=== PATIENT | male | born 1945 | race Caucasian/White ===

== ENCOUNTER 2022-02-13 22:34 | Inpatient (IN) | payer OTHER ==
[~2022-02-13] VITALS: Ht 165.1 cm; Wt 86.2 kg
[2022-02-13 23:23] VITALS: BP_SYST 167
[2022-02-13] MEDS ORDERED: DEXTROSE 50% JECT 50 ML DISP.SYRIN IVP ONE (23:45)
[2022-02-13] MEDS ORDERED: NS 500 ML IV ONE (23:45)
[2022-02-14] VITALS (16 sets, daily range): BP systolic 121–166
[2022-02-14 00:25] LABS: BASOPHILS # (AUTO) 0.1 K/uL (0.0-0.2); BASOPHILS % (AUTO) 0.9 % (0.0-2.0); HEMATOCRIT 28.9 % (36-54); LYMPHOCYTES % (AUTO) 10.9 % (20.5-51.5); MEAN CORPUSCULAR HEMOGLOBIN 31 pg (27-31); MEAN CORPUSCULAR HGB CONC 34 % (32-36); MEAN CORPUSCULAR VOLUME 89 fL (79.0-98.0); MONOCYTES # (AUTO) 0.5 K/uL (0.0-1.0); MONOCYTES % (AUTO) 5.2 % (1.7-9.3); NEUTROPHILS # (AUTO) 7.5 K/uL (1.8-7.7); PLATELET COUNT (AUTO) 196 K/uL (130-430); RED BLOOD CELL COUNT(AUTO) 3.24 MIL/uL (4.2-6.2); RED CELL DISTRIBUTION WIDTH 13.9 % (9.0-15.0)
[2022-02-14 01:23] LABS: BILIRUBIN,URINE NEGATIVE (NEGATIVE); BLOOD, URINE 1+ (NEGATIVE); CLARITY/URINE CLEAR (CLEAR); COLOR,URINE YELLOW (YELLOW); GLUCOSE,URINE TRACE (NEGATIVE); KETONES,URINE NEGATIVE (NEGATIVE); LEUKOCYTE ESTERASE ,URINE NEGATIVE (NEGATIVE); NITRITE, URINE NEGATIVE (NEGATIVE); PH,URINE 5.5 (5.0-8.0); PROTEIN URINE 3+ (NEGATIVE); UROBILINOGEN,URINE 0.2 (0.2-1.0)
[2022-02-14 01:37] LABS: ALANINE AMINOTRANSFERASE 15 U/L (12-78); ANION GAP 9 (5-15); ASPARTATE AMINOTRANSFERASE 18 U/L (10-37); CALCIUM 8.3 mg/dL (8.4-11.0); CHLORIDE 108 mmol/L (98-107); CREATININE 4.49 mg/dL (0.55-1.30); GLUCOSE 222 mg/dL (70-99); POTASSIUM 4.9 mmol/L (3.5-5.1); SODIUM SERUM 134 mmol/L (136-145); TOTAL BILIRUBIN 0.2 mg/dL (0.0-1.0); UREA NITROGEN, BLOOD 46 mg/dL (8-21)
[2022-02-14] MEDS ORDERED: DEXTROSE 50% JECT 50 ML DISP.SYRIN ONE (01:38)
[2022-02-14] MEDS ORDERED: DEXTROSE 10%-WATER 500 ML IV SCH (01:45)
[2022-02-14] MEDS ORDERED: DEXTROSE 50% JECT 50 ML DISP.SYRIN IVP ONE ×2 (01:45→03:15)
[2022-02-14] MEDS ORDERED: D5NS 1,000 ML IV ONE (01:45)
[2022-02-14] MEDS ORDERED: CLOP75TA32 PO (02:13)
[2022-02-14] MEDS ORDERED: GLIM1TAB PO (02:13)
[2022-02-14] MEDS ORDERED: METO-542 (02:13)
[2022-02-14] MEDS ORDERED: ASA81 PO (02:13)
[2022-02-14] MEDS ORDERED: MECL-261 (02:13)
[2022-02-14] MEDS ORDERED: LISI40TA13 PO (02:13)
[2022-02-14] MEDS ORDERED: AMLO10TA88 PO (02:13)
[2022-02-14] MEDS ORDERED: FOLI-43 PO (02:13)
[2022-02-14] MEDS ORDERED: PRAV40TA63 PO (02:13)
[2022-02-14] MEDS ORDERED: INSULIN REGULAR, HUMAN 100 UNITS/ML, 10 ML VIAL (humuLIN R) SUBCUT PRN (02:45)
[2022-02-14] MEDS: D5/0.45 NS 1,000 ML IV SCH ×2 (03:44→14:07)
[2022-02-14] MEDS ORDERED: DOCUSATE SODIUM 100 MG CAPSULE PO PRN (08:00)
[2022-02-14] MEDS ORDERED: ACETAMINOPHEN 325 MG TABLET PO PRN ×2 (08:00)
[2022-02-14] MEDS ORDERED: ONDANSETRON HCL 4 MG/2 ML VIAL IVP PRN (08:00)
[2022-02-14] MEDS ORDERED: NALOXONE HCL 0.4 MG/ML AMP (NARCAN) IVP PRN ×2 (08:00)
[2022-02-14] MEDS ORDERED: ZOLPIDEM TARTRATE 5 MG TABLET PO PRN (08:00)
[2022-02-14] MEDS ORDERED: MAGNESIUM SULFATE 50 ML IV PRN (08:00)
[2022-02-14] MEDS ORDERED: POTASSIUM CHLORIDE 20 MEQ TAB.PRT.SR PO PRN (08:00)
[2022-02-14] MEDS ORDERED: MORPHINE 2 MG/ML INJ. SYRINGE IVP PRN ×2 (08:00)
[2022-02-14] MEDS ORDERED: MUPIROCIN 2% TOPICAL OINTMENT 22 GM NS PRN (08:00)
[2022-02-14] MEDS ORDERED: LORazepam 2 MG/ML VIAL IVP PRN (08:00)
[2022-02-14 08:28] LABS: ANION GAP 13 (5-15); CALCIUM 8.1 mg/dL (8.4-11.0); CHLORIDE 112 mmol/L (98-107); CREATININE 4.13 mg/dL (0.55-1.30); GLUCOSE 86 mg/dL (70-99); POTASSIUM 4.9 mmol/L (3.5-5.1); SODIUM SERUM 141 mmol/L (136-145); UREA NITROGEN, BLOOD 45 mg/dL (8-21)
[2022-02-14] MEDS: ASPIRIN 81 MG TAB.CHEW PO SCH (09:08)
[2022-02-14] MEDS: CLOPIDOGREL BISULFATE 75 MG TABLET PO SCH (09:09)
[2022-02-14] MEDS: amLODIPine BESYLATE 10 MG TABLET PO SCH (09:09)
[2022-02-14] MEDS: FOLIC ACID 1 MG TABLET PO SCH (09:09)
[2022-02-14] MEDS: METOPROLOL SUCCINATE 50 MG TAB.SR.24H (TOPROL XL) PO SCH (09:09)
[2022-02-15] MEDS: D5/0.45 NS 1,000 ML IV SCH ×3 (00:30→19:41)
[2022-02-15 00:31] VITALS: BP_SYST 156
[2022-02-15 06:52] LABS: BASOPHILS # (AUTO) 0.1 K/uL (0.0-0.2); BASOPHILS % (AUTO) 0.9 % (0.0-2.0); EOSINOPHILS # (AUTO) 0.1 K/uL (0.0-0.4); EOSINOPHILS % (AUTO) 2.3 % (0.0-4.0); HEMATOCRIT 27.4 % (36-54); HEMOGLOBIN 9.4 g/dL (14.0-18.0); LYMPHOCYTES # (AUTO) 1.6 K/uL (1.0-5.5); LYMPHOCYTES % (AUTO) 25.1 % (20.5-51.5); MEAN CORPUSCULAR HEMOGLOBIN 30 pg (27-31); MEAN CORPUSCULAR HGB CONC 34 % (32-36); MEAN CORPUSCULAR VOLUME 89 fL (79.0-98.0); MONOCYTES # (AUTO) 0.7 K/uL (0.0-1.0); MONOCYTES % (AUTO) 10.8 % (1.7-9.3); NEUTROPHILS % (AUTO) 60.9 % (40.0-70.0); PLATELET COUNT (AUTO) 168 K/uL (130-430); RED BLOOD CELL COUNT(AUTO) 3.09 MIL/uL (4.2-6.2); RED CELL DISTRIBUTION WIDTH 13.8 % (9.0-15.0); WHITE BLOOD COUNT (AUTO) 6.5 K/uL (4.8-10.8)
[2022-02-15 08:15] VITALS: BP_SYST 164
[2022-02-15 08:48] LABS: ANION GAP 11 (5-15); CALCIUM 7.9 mg/dL (8.4-11.0); CHLORIDE 113 mmol/L (98-107); CREATININE 3.68 mg/dL (0.55-1.30); GLUCOSE 105 mg/dL (70-99); POTASSIUM 5.2 mmol/L (3.5-5.1); SODIUM SERUM 141 mmol/L (136-145); UREA NITROGEN, BLOOD 40 mg/dL (8-21)
[2022-02-15] MEDS ORDERED: SODIUM POLYSTYRENE SULFONATE 15 GM/60 ML UDBTL PO ONE (09:45)
[2022-02-15] MEDS ORDERED: FOLIC ACID 1 MG TABLET ONE (10:00)
[2022-02-15] MEDS ORDERED: CLOPIDOGREL BISULFATE 75 MG TABLET ONE (10:01)
[2022-02-15] MEDS ORDERED: METOPROLOL SUCCINATE 25 MG TAB.SR.24H (TOPROL XL) PO ONE (10:01)
[2022-02-15] MEDS: ASPIRIN 81 MG TAB.CHEW PO SCH (10:02)
[2022-02-15] MEDS: CLOPIDOGREL BISULFATE 75 MG TABLET PO SCH (10:03)
[2022-02-15] MEDS: FOLIC ACID 1 MG TABLET PO SCH (10:03)
[2022-02-15] MEDS: amLODIPine BESYLATE 10 MG TABLET PO SCH (10:03)
[2022-02-15] MEDS: METOPROLOL SUCCINATE 50 MG TAB.SR.24H (TOPROL XL) PO SCH (10:04)
[2022-02-15 11:42] VITALS: BP_SYST 150
[2022-02-15] MEDS ORDERED: SODIUM ZIRCONIUM CYCLOSILICATE 10 GM POWD.PACK PO ONE (14:30)
[2022-02-15] MEDS ORDERED: CITRIC ACID/SODIUM CITRATE 30 ML UDC PO ONE (14:30)
[2022-02-15 16:25] VITALS: BP_SYST 143
[2022-02-15 21:07] VITALS: BP_SYST 172
[2022-02-16 00:30] VITALS: BP_SYST 161
[2022-02-16] MEDS: D5/0.45 NS 1,000 ML IV SCH (05:41)
[2022-02-16 07:05] LABS: BASOPHILS # (AUTO) 0.1 K/uL (0.0-0.2); BASOPHILS % (AUTO) 0.9 % (0.0-2.0); EOSINOPHILS # (AUTO) 0.2 K/uL (0.0-0.4); EOSINOPHILS % (AUTO) 2.7 % (0.0-4.0); HEMATOCRIT 27.6 % (36-54); HEMOGLOBIN 9.7 g/dL (14.0-18.0); LYMPHOCYTES # (AUTO) 1.3 K/uL (1.0-5.5); LYMPHOCYTES % (AUTO) 17.9 % (20.5-51.5); MEAN CORPUSCULAR HEMOGLOBIN 31 pg (27-31); MEAN CORPUSCULAR HGB CONC 35 % (32-36); MEAN CORPUSCULAR VOLUME 88 fL (79.0-98.0); MONOCYTES # (AUTO) 0.8 K/uL (0.0-1.0); MONOCYTES % (AUTO) 11.2 % (1.7-9.3); NEUTROPHILS % (AUTO) 67.3 % (40.0-70.0); PLATELET COUNT (AUTO) 175 K/uL (130-430); RED BLOOD CELL COUNT(AUTO) 3.15 MIL/uL (4.2-6.2); RED CELL DISTRIBUTION WIDTH 13.9 % (9.0-15.0); WHITE BLOOD COUNT (AUTO) 7.4 K/uL (4.8-10.8)
[2022-02-16 07:12] LABS: ANION GAP 10 (5-15); CALCIUM 8.1 mg/dL (8.4-11.0); CHLORIDE 112 mmol/L (98-107); CREATININE 3.41 mg/dL (0.55-1.30); GLUCOSE 99 mg/dL (70-99); POTASSIUM 5.3 mmol/L (3.5-5.1); SODIUM SERUM 140 mmol/L (136-145); UREA NITROGEN, BLOOD 43 mg/dL (8-21)
[2022-02-16 07:47] VITALS: BP_SYST 177
[2022-02-16 08:00] VITALS: BP_SYST 177
[2022-02-16] MEDS ORDERED: SODIUM POLYSTYRENE SULFONATE 15 GM/60 ML UDBTL PO ONE (09:00)
[2022-02-16] MEDS: FOLIC ACID 1 MG TABLET PO SCH (09:21)
[2022-02-16] MEDS: CLOPIDOGREL BISULFATE 75 MG TABLET PO SCH (09:21)
[2022-02-16] MEDS: ASPIRIN 81 MG TAB.CHEW PO SCH (09:21)
[2022-02-16] MEDS: amLODIPine BESYLATE 10 MG TABLET PO SCH (09:22)
[2022-02-16] MEDS: METOPROLOL SUCCINATE 50 MG TAB.SR.24H (TOPROL XL) PO SCH (09:23)
[2022-02-16 12:00] VITALS: BP_SYST 136
[2022-02-16 13:22] VITALS: BP_SYST 132
== END 2022-02-16 13:55 | disposition home or self-care (01) | DRG 638 ==
LOC: EDBD 22:34 → SED 22:34 → SIC 02-14 02:37 → STU 02-14 16:40
PROVIDERS: ADMIT General Practice; ATTEND General Practice
DX: E11.649 Type 2 diabetes mellitus with hypoglycemia without coma (principal); E44.1 Mild protein-calorie malnutrition; J98.11 Atelectasis; E87.5 Hyperkalemia; N17.0 Acute kidney failure with tubular necrosis; D63.8 Anemia in other chronic diseases classified elsewhere; E78.5 Hyperlipidemia, unspecified; N18.9 Chronic kidney disease, unspecified; E11.22 Type 2 diabetes mellitus with diabetic chronic kidney disease; I12.9 Hypertensive chronic kidney disease with stage 1 through stage 4 chronic kidney disease, or unspecified chronic kidney disease; Z20.822 Contact with and (suspected) exposure to COVID-19; Z79.84 Long term (current) use of oral hypoglycemic drugs; Z87.891 Personal history of nicotine dependence; Z79.82 Long term (current) use of aspirin; Z79.899 Other long term (current) drug therapy; Z68.31 Body mass index [BMI] 31.0-31.9, adult
CPT/HCPCS: 36415; 71045; 76376; 76770; 80048; 80053; 81003; 82962; 83036; 83735; 84484; 85025; 87081; 93005; 96374; 99285; G0378; J1815; J3475

== ENCOUNTER 2022-11-14 09:10 | Inpatient (IN) | payer OTHER ==
[~2022-11-14] VITALS: Ht 165.1 cm; Wt 84.8 kg
[~2022-11-14 09:10] MED LIST: AMLO10TA88 PO; ASA81 PO; CLOP75TA32 PO; FOLI-43 PO; MECL-261; METO-542; PRAV40TA63 PO
[2022-11-14 09:12] VITALS: BP_SYST 176
[2022-11-14 09:13] VITALS: BP_SYST 167
[2022-11-14 09:46] LABS: BASOPHILS % (AUTO) 0.1 % (0.0-2.0); EOSINOPHILS # (AUTO) 0.1 K/uL (0.0-0.4); HEMATOCRIT 27.8 % (36-54); HEMOGLOBIN 9.3 g/dL (14.0-18.0); LYMPHOCYTES % (AUTO) 12.8 % (20.5-51.5); MEAN CORPUSCULAR HEMOGLOBIN 30 pg (27-31); MEAN CORPUSCULAR HGB CONC 33 % (32-36); MEAN CORPUSCULAR VOLUME 90 fL (79.0-98.0); MONOCYTES # (AUTO) 0.7 K/uL (0.0-1.0); MONOCYTES % (AUTO) 8.9 % (1.7-9.3); NEUTROPHILS # (AUTO) 6.3 K/uL (1.8-7.7); NEUTROPHILS % (AUTO) 77.2 % (40.0-70.0); PLATELET COUNT (AUTO) 248 K/uL (130-430); RED BLOOD CELL COUNT(AUTO) 3.09 MIL/uL (4.2-6.2); RED CELL DISTRIBUTION WIDTH 14.5 % (9.0-15.0); WHITE BLOOD COUNT (AUTO) 8.2 K/uL (4.8-10.8)
[2022-11-14 09:58] LABS: ANION GAP 16 (5-15); CALCIUM 8.3 mg/dL (8.4-11.0); CHLORIDE 108 mmol/L (98-107); CREATININE 5.43 mg/dL (0.55-1.30); GLUCOSE 91 mg/dL (70-99); UREA NITROGEN, BLOOD 59 mg/dL (8-21)
[2022-11-14 10:05] LABS: ALANINE AMINOTRANSFERASE 15 U/L (12-78); ALBUMIN 2.9 g/dL (3.4-4.8); ASPARTATE AMINOTRANSFERASE 16 U/L (10-37); TOTAL BILIRUBIN 0.3 mg/dL (0.0-1.0)
[2022-11-14] MEDS ORDERED: FUROSEMIDE 40 MG/4 ML VIAL IVP ONE (10:30)
[2022-11-14] MEDS ORDERED: NITROGLYCERIN 1 INCH (GM) OINT. TP ONE (10:30)
[2022-11-14] MEDS ORDERED: LEVO-62 PO (10:45)
[2022-11-14] MEDS ORDERED: ALBU2.5V7 INH (10:45)
[2022-11-14] MEDS ORDERED: LORazepam 2 MG/ML VIAL IVP PRN (12:00)
[2022-11-14] MEDS ORDERED: MORPHINE 4 MG INJ. 4 MG/ML VIAL IVP PRN (12:00)
[2022-11-14] MEDS ORDERED: MORPHINE 2 MG/ML INJ. SYRINGE IVP PRN (12:00)
[2022-11-14] MEDS ORDERED: ALBUTEROL SULFATE 0.083% 2.5 MG/3 ML VIAL.NEB INH PRN (12:00)
[2022-11-14] MEDS ORDERED: POTASSIUM CHLORIDE 40 MEQ, LIDOCAINE JECT 2% PF 100 MG 50 MG in NS 250 ML IV PRN (12:00)
[2022-11-14] MEDS ORDERED: MAGNESIUM SULFATE 50 ML IV PRN (12:00)
[2022-11-14] MEDS ORDERED: NACL 0.9% 1,000 ML IV SCH (12:00)
[2022-11-14] MEDS ORDERED: ONDANSETRON HCL 4 MG/2 ML VIAL IVP PRN (12:00)
[2022-11-14 12:21] LABS: THYROID STIMULATING HORMONE 2.27 uIu/mL (0.34-4.82)
[2022-11-14] MEDS ORDERED: amLODIPine BESYLATE 10 MG TABLET PO ONE (12:30)
[2022-11-14 12:42] LABS: BILIRUBIN,URINE NEGATIVE (NEGATIVE); BLOOD, URINE 1+ (NEGATIVE); CLARITY/URINE CLEAR (CLEAR); COLOR,URINE YELLOW (YELLOW); GLUCOSE,URINE TRACE (NEGATIVE); KETONES,URINE TRACE (NEGATIVE); LEUKOCYTE ESTERASE ,URINE NEGATIVE (NEGATIVE); NITRITE, URINE NEGATIVE (NEGATIVE); PROTEIN URINE 3+ (NEGATIVE); UROBILINOGEN,URINE 0.2 (0.2-1.0)
[2022-11-14 13:31] LABS: BACTERIA,URINE None Seen /HPF (None Seen); WBC,URINE NONE SEEN /HPF (0-3)
[2022-11-14 13:53] VITALS: BP_SYST 164
[2022-11-14 14:27] VITALS: BP_SYST 169
[2022-11-14 16:00] VITALS: BP_SYST 165
[2022-11-14 20:05] VITALS: BP_SYST 182
[2022-11-14 20:21] LABS: THYROID STIMULATING HORMONE 1.52 uIu/mL (0.34-4.82)
[2022-11-14] MEDS ORDERED: hydrALAZINE HCL 25 MG TABLET PO ONE (21:30)
[2022-11-14] MEDS ORDERED: DEXTROSE 50% JECT 50 ML DISP.SYRIN IVP PRN (23:00)
[2022-11-14] MEDS ORDERED: INSULIN REGULAR, HUMAN 100 UNITS/ML, 3 ML VIAL (humuLIN R) SUBCUT PRN (23:00)
[2022-11-14] MEDS ORDERED: GLUCOSE (DEXTROSE) ORAL GEL -Adults PO PRN (23:00)
[2022-11-14] MEDS ORDERED: D5W 1,000 ML IV PRN (23:00)
[2022-11-15] VITALS (7 sets, daily range): BP systolic 141–183
[2022-11-15 05:52] LABS: BASOPHILS # (AUTO) 0.1 K/uL (0.0-0.2); BASOPHILS % (AUTO) 1.1 % (0.0-2.0); EOSINOPHILS # (AUTO) 0.1 K/uL (0.0-0.4); EOSINOPHILS % (AUTO) 0.8 % (0.0-4.0); HEMATOCRIT 25.3 % (36-54); HEMOGLOBIN 8.5 g/dL (14.0-18.0); LYMPHOCYTES % (AUTO) 14.2 % (20.5-51.5); MEAN CORPUSCULAR HEMOGLOBIN 30 pg (27-31); MEAN CORPUSCULAR HGB CONC 33 % (32-36); MEAN CORPUSCULAR VOLUME 91 fL (79.0-98.0); MONOCYTES # (AUTO) 0.6 K/uL (0.0-1.0); MONOCYTES % (AUTO) 8.7 % (1.7-9.3); NEUTROPHILS # (AUTO) 5.1 K/uL (1.8-7.7); NEUTROPHILS % (AUTO) 75.2 % (40.0-70.0); PLATELET COUNT (AUTO) 219 K/uL (130-430); RED BLOOD CELL COUNT(AUTO) 2.79 MIL/uL (4.2-6.2); RED CELL DISTRIBUTION WIDTH 14.7 % (9.0-15.0); WHITE BLOOD COUNT (AUTO) 6.8 K/uL (4.8-10.8)
[2022-11-15 06:16] LABS: INR 1.1 (0.80-1.20); PROTHROMBIN TIME 11.1 SECS (9.5-12.5)
[2022-11-15] MEDS ORDERED: SPIRONOLACTONE 50 MG TABLET (ALDACTONE) PO SCH (09:00)
[2022-11-15] MEDS ORDERED: CLOPIDOGREL BISULFATE 75 MG TABLET PO SCH (09:00)
[2022-11-15] MEDS ORDERED: ASPIRIN 81 MG TAB.CHEW PO SCH (09:00)
[2022-11-15] MEDS ORDERED: ENOXAPARIN SODIUM 30 MG/0.3 ML SYRINGE SUBCUT SCH (09:00)
[2022-11-15] MEDS ORDERED: lisinopriL 5 MG TABLET PO SCH (09:00)
[2022-11-15] MEDS: FUROSEMIDE 40 MG/4 ML VIAL IVP SCH (09:33)
[2022-11-15] MEDS: ATORVASTATIN 20 MG TABLET PO SCH (09:33)
[2022-11-15] MEDS: METOPROLOL SUCCINATE 50 MG TAB.SR.24H (TOPROL XL) PO SCH (09:33)
[2022-11-15] MEDS: hydrALAZINE HCL 25 MG TABLET PO SCH ×2 (09:34→21:26)
[2022-11-15] MEDS: FOLIC ACID 1 MG TABLET PO SCH (09:34)
[2022-11-15] MEDS: amLODIPine BESYLATE 10 MG TABLET PO SCH (09:35)
[2022-11-15 11:02] LABS: TOTAL IRON BIND. CAPACITY 307 ug/dL (250-450)
[2022-11-15 11:04] LABS: ANION GAP 14 (5-15); CALCIUM 8.3 mg/dL (8.4-11.0); CHLORIDE 112 mmol/L (98-107); CREATININE 5.65 mg/dL (0.55-1.30); GLUCOSE 92 mg/dL (70-99); UREA NITROGEN, BLOOD 62 mg/dL (8-21)
[2022-11-15 11:11] LABS: ALANINE AMINOTRANSFERASE 11 U/L (12-78); ALBUMIN 2.5 g/dL (3.4-4.8); ASPARTATE AMINOTRANSFERASE 13 U/L (10-37); PHOSPHORUS 6.7 mg/dL (2.7-4.5); TOTAL BILIRUBIN 0.3 mg/dL (0.0-1.0)
[2022-11-15] MEDS ORDERED: SODIUM POLYSTYRENE SULFONATE 15 GM/60 ML UDBTL PO ONE (11:30)
[2022-11-15 12:53] LABS: BF APPEARANCE UNSPUN SLIGHTLY CLOUDY (CLEAR); BODY FLUID SOURCE/ TYPE THORACENTESIS; SOURCE/TYPE ,BODY FLUID THORACENTESIS
[2022-11-15 12:54] LABS: BODY FLUID COLOR YELLOW (LT YELLOW); BODY FLUID TOTAL VOLUME 2000 mL
[2022-11-15 13:00] LABS: EOSINOPHIL, BODY FLUID 0 %; LYMPHOCYTES, BODY FLUID 84 %; MONOCYTES,BODY FLUID 2 %; NEUTROPHIL, BODY FLUID 14 %; RBC, BODY FLUID 24 /uL; WBC, BODY FLUID 475 /uL
[2022-11-15 21:52] LABS: BODY FLUID GLUCOSE 87 mg/dL; BODY FLUID TOTAL PROTEIN 2.6 g/dL
[2022-11-16] VITALS: BP_SYST 157
[2022-11-16 05:44] LABS: BASOPHILS # (AUTO) 0.1 K/uL (0.0-0.2); BASOPHILS % (AUTO) 1.4 % (0.0-2.0); EOSINOPHILS # (AUTO) 0.1 K/uL (0.0-0.4); HEMATOCRIT 25.3 % (36-54); HEMOGLOBIN 8.4 g/dL (14.0-18.0); LYMPHOCYTES % (AUTO) 14.2 % (20.5-51.5); MEAN CORPUSCULAR HEMOGLOBIN 30 pg (27-31); MEAN CORPUSCULAR HGB CONC 33 % (32-36); MEAN CORPUSCULAR VOLUME 91 fL (79.0-98.0); MONOCYTES # (AUTO) 0.7 K/uL (0.0-1.0); MONOCYTES % (AUTO) 9.1 % (1.7-9.3); NEUTROPHILS # (AUTO) 5.3 K/uL (1.8-7.7); NEUTROPHILS % (AUTO) 74.3 % (40.0-70.0); PLATELET COUNT (AUTO) 222 K/uL (130-430); RED CELL DISTRIBUTION WIDTH 14.6 % (9.0-15.0); WHITE BLOOD COUNT (AUTO) 7.1 K/uL (4.8-10.8)
[2022-11-16 06:35] LABS: ALANINE AMINOTRANSFERASE 10 U/L (12-78); ALBUMIN 2.2 g/dL (3.4-4.8); ANION GAP 13 (5-15); ASPARTATE AMINOTRANSFERASE 14 U/L (10-37); CALCIUM 7.9 mg/dL (8.4-11.0); CHLORIDE 112 mmol/L (98-107); CREATININE 5.53 mg/dL (0.55-1.30); GLUCOSE 84 mg/dL (70-99); TOTAL BILIRUBIN 0.3 mg/dL (0.0-1.0); UREA NITROGEN, BLOOD 54 mg/dL (8-21)
[2022-11-16 07:35] VITALS: BP_SYST 167
[2022-11-16] MEDS: ATORVASTATIN 20 MG TABLET PO SCH (09:00)
[2022-11-16] MEDS: FOLIC ACID 1 MG TABLET PO SCH (09:00)
[2022-11-16] MEDS: FUROSEMIDE 40 MG/4 ML VIAL IVP SCH (09:00)
[2022-11-16] MEDS: hydrALAZINE HCL 25 MG TABLET PO SCH ×2 (09:00→22:24)
[2022-11-16] MEDS: amLODIPine BESYLATE 10 MG TABLET PO SCH (10:46)
[2022-11-16] MEDS: METOPROLOL SUCCINATE 50 MG TAB.SR.24H (TOPROL XL) PO SCH (10:48)
[2022-11-16 12:00] VITALS: BP_SYST 166
[2022-11-16] MEDS ORDERED: ceFAZolin SODIUM 1 GM VIAL ONE (13:55)
[2022-11-16] MEDS ORDERED: NS IRRIG SOLN 1000 ML IR ONE (13:55)
[2022-11-16] MEDS ORDERED: HEPARIN SODIUM,PORCINE 10,000 UNIT/ML VIAL ONE (13:55)
[2022-11-16] MEDS ORDERED: D5W IV ONE (13:55)
[2022-11-16] MEDS ORDERED: BUPIVACAINE /EPINEPHRINE/PF 0.5% 30 ML VIAL INJ ONE (13:55)
[2022-11-16 16:30] VITALS: BP_SYST 169
[2022-11-16 19:19] LABS: TOTAL VOLUME 24HRS,URINE 1100 mL; TPROTEIN U,24HR 5756.3 mg/24HR (0-130)
[2022-11-16 19:23] LABS: CREATININE CLEARANCE,URINE 6.8 ml/min (80-120); PATIENT WEIGHT 187 LBS
[2022-11-16 20:00] VITALS: BP_SYST 157
[2022-11-16] MEDS ORDERED: HEPARIN SODIUM,PORCINE 5,000 UNITS/ML VIAL MC ONE (20:30)
[2022-11-17 03:22] VITALS: BP_SYST 160
[2022-11-17 08:00] VITALS: BP_SYST 164
[2022-11-17 08:04] LABS: EOSINOPHILS # (AUTO) 0.1 K/uL (0.0-0.4); EOSINOPHILS % (AUTO) 1.9 % (0.0-4.0); HEMATOCRIT 25.1 % (36-54); HEMOGLOBIN 8.6 g/dL (14.0-18.0); MEAN CORPUSCULAR HEMOGLOBIN 30 pg (27-31); MEAN CORPUSCULAR HGB CONC 34 % (32-36); MEAN CORPUSCULAR VOLUME 88 fL (79.0-98.0); MONOCYTES # (AUTO) 0.7 K/uL (0.0-1.0); MONOCYTES % (AUTO) 10.7 % (1.7-9.3); PLATELET COUNT (AUTO) 203 K/uL (130-430); RED BLOOD CELL COUNT(AUTO) 2.86 MIL/uL (4.2-6.2); RED CELL DISTRIBUTION WIDTH 14.1 % (9.0-15.0); WHITE BLOOD COUNT (AUTO) 6.2 K/uL (4.8-10.8)
[2022-11-17 08:24] LABS: BASOPHILS % (AUTO) 0.4 % (0.0-2.0); NEUTROPHILS # (AUTO) 4.4 K/uL (1.8-7.7)
[2022-11-17 08:46] LABS: ALANINE AMINOTRANSFERASE 9 U/L (12-78); ALBUMIN 2.1 g/dL (3.4-4.8); ANION GAP 10 (5-15); ASPARTATE AMINOTRANSFERASE 15 U/L (10-37); CALCIUM 7.6 mg/dL (8.4-11.0); CHLORIDE 104 mmol/L (98-107); CREATININE 3.95 mg/dL (0.55-1.30); GLUCOSE 84 mg/dL (70-99); PHOSPHORUS 5.3 mg/dL (2.7-4.5); TOTAL BILIRUBIN 0.3 mg/dL (0.0-1.0); UREA NITROGEN, BLOOD 34 mg/dL (8-21)
[2022-11-17] MEDS: FUROSEMIDE 40 MG/4 ML VIAL IVP SCH ×3 (09:00→11:53)
[2022-11-17] MEDS: FOLIC ACID 1 MG TABLET PO SCH (09:18)
[2022-11-17] MEDS: ENOXAPARIN SODIUM 30 MG/0.3 ML SYRINGE SUBCUT SCH (09:18)
[2022-11-17] MEDS: CLOPIDOGREL BISULFATE 75 MG TABLET PO SCH (09:19)
[2022-11-17] MEDS: METOPROLOL SUCCINATE 50 MG TAB.SR.24H (TOPROL XL) PO SCH (09:19)
[2022-11-17] MEDS: amLODIPine BESYLATE 10 MG TABLET PO SCH (09:20)
[2022-11-17] MEDS: ASPIRIN 81 MG TAB.CHEW PO SCH (09:20)
[2022-11-17] MEDS: hydrALAZINE HCL 25 MG TABLET PO SCH ×2 (09:21→21:31)
[2022-11-17] MEDS: ATORVASTATIN 20 MG TABLET PO SCH (09:22)
[2022-11-17 10:13] VITALS: BP_SYST 164
[2022-11-17 11:28] VITALS: BP_SYST 154
[2022-11-17] MEDS ORDERED: HEPARIN SODIUM,PORCINE 5,000 UNITS/ML VIAL MC PRN (13:45)
[2022-11-17 15:29] VITALS: BP_SYST 139
[2022-11-17 20:00] VITALS: BP_SYST 171
[2022-11-18] VITALS: BP_SYST 145
[2022-11-18 08:00] VITALS: BP_SYST 154
[2022-11-18] MEDS: CLOPIDOGREL BISULFATE 75 MG TABLET PO SCH (09:00)
[2022-11-18] MEDS: METOPROLOL SUCCINATE 50 MG TAB.SR.24H (TOPROL XL) PO SCH (09:00)
[2022-11-18 09:26] LABS: BASOPHILS # (AUTO) 0.1 K/uL (0.0-0.2); BASOPHILS % (AUTO) 1.1 % (0.0-2.0); EOSINOPHILS # (AUTO) 0.1 K/uL (0.0-0.4); EOSINOPHILS % (AUTO) 1.3 % (0.0-4.0); HEMATOCRIT 25.7 % (36-54); HEMOGLOBIN 8.7 g/dL (14.0-18.0); LYMPHOCYTES % (AUTO) 14.8 % (20.5-51.5); MEAN CORPUSCULAR HEMOGLOBIN 30 pg (27-31); MEAN CORPUSCULAR HGB CONC 34 % (32-36); MEAN CORPUSCULAR VOLUME 89 fL (79.0-98.0); MONOCYTES # (AUTO) 0.7 K/uL (0.0-1.0); MONOCYTES % (AUTO) 10.8 % (1.7-9.3); NEUTROPHILS # (AUTO) 4.7 K/uL (1.8-7.7); PLATELET COUNT (AUTO) 190 K/uL (130-430); RED BLOOD CELL COUNT(AUTO) 2.87 MIL/uL (4.2-6.2); RED CELL DISTRIBUTION WIDTH 13.9 % (9.0-15.0); WHITE BLOOD COUNT (AUTO) 6.6 K/uL (4.8-10.8)
[2022-11-18 09:37] LABS: ALANINE AMINOTRANSFERASE 6 U/L (12-78); ANION GAP 7 (5-15); ASPARTATE AMINOTRANSFERASE 15 U/L (10-37); CALCIUM 7.5 mg/dL (8.4-11.0); CHLORIDE 101 mmol/L (98-107); CREATININE 3.51 mg/dL (0.55-1.30); GLUCOSE 164 mg/dL (70-99); PHOSPHORUS 4.7 mg/dL (2.7-4.5); TOTAL BILIRUBIN 0.3 mg/dL (0.0-1.0); UREA NITROGEN, BLOOD 25 mg/dL (8-21)
[2022-11-18] MEDS: ASPIRIN 81 MG TAB.CHEW PO SCH (10:10)
[2022-11-18] MEDS: amLODIPine BESYLATE 10 MG TABLET PO SCH (10:11)
[2022-11-18] MEDS: FOLIC ACID 1 MG TABLET PO SCH (10:11)
[2022-11-18] MEDS: ATORVASTATIN 20 MG TABLET PO SCH (10:12)
[2022-11-18] MEDS: FUROSEMIDE 40 MG/4 ML VIAL IVP SCH (10:13)
[2022-11-18] MEDS: ENOXAPARIN SODIUM 30 MG/0.3 ML SYRINGE SUBCUT SCH (10:14)
[2022-11-18] MEDS: hydrALAZINE HCL 25 MG TABLET PO SCH ×2 (10:35→21:54)
[2022-11-18 11:27] VITALS: BP_SYST 150
[2022-11-18 12:07] LABS: HEPATITIS B SURFACE AG Negative (Negative); HEPATITIS C VIRUS AB Non Reactive (Non Reactive)
[2022-11-18 15:17] VITALS: BP_SYST 140
[2022-11-18 20:00] VITALS: BP_SYST 150
[2022-11-19 00:14] VITALS: BP_SYST 148
[2022-11-19 07:40] VITALS: BP_SYST 156
[2022-11-19] MEDS: ASPIRIN 81 MG TAB.CHEW PO SCH (08:44)
[2022-11-19] MEDS: amLODIPine BESYLATE 10 MG TABLET PO SCH (08:45)
[2022-11-19] MEDS: FOLIC ACID 1 MG TABLET PO SCH (08:45)
[2022-11-19] MEDS: hydrALAZINE HCL 25 MG TABLET PO SCH ×2 (08:47→21:24)
[2022-11-19] MEDS: ATORVASTATIN 20 MG TABLET PO SCH (08:47)
[2022-11-19] MEDS: CLOPIDOGREL BISULFATE 75 MG TABLET PO SCH (08:47)
[2022-11-19] MEDS: ENOXAPARIN SODIUM 30 MG/0.3 ML SYRINGE SUBCUT SCH (08:49)
[2022-11-19] MEDS: METOPROLOL SUCCINATE 50 MG TAB.SR.24H (TOPROL XL) PO SCH (08:49)
[2022-11-19 09:02] LABS: BASOPHILS # (AUTO) 0.1 K/uL (0.0-0.2); BASOPHILS % (AUTO) 1.1 % (0.0-2.0); EOSINOPHILS # (AUTO) 0.1 K/uL (0.0-0.4); EOSINOPHILS % (AUTO) 1.3 % (0.0-4.0); HEMATOCRIT 28.9 % (36-54); HEMOGLOBIN 9.7 g/dL (14.0-18.0); LYMPHOCYTES # (AUTO) 1.3 K/uL (1.0-5.5); LYMPHOCYTES % (AUTO) 18.5 % (20.5-51.5); MEAN CORPUSCULAR HEMOGLOBIN 30 pg (27-31); MEAN CORPUSCULAR HGB CONC 34 % (32-36); MEAN CORPUSCULAR VOLUME 89 fL (79.0-98.0); MONOCYTES # (AUTO) 0.9 K/uL (0.0-1.0); MONOCYTES % (AUTO) 12.5 % (1.7-9.3); NEUTROPHILS # (AUTO) 4.6 K/uL (1.8-7.7); NEUTROPHILS % (AUTO) 66.6 % (40.0-70.0); PLATELET COUNT (AUTO) 197 K/uL (130-430); RED BLOOD CELL COUNT(AUTO) 3.24 MIL/uL (4.2-6.2); RED CELL DISTRIBUTION WIDTH 13.9 % (9.0-15.0); WHITE BLOOD COUNT (AUTO) 6.8 K/uL (4.8-10.8)
[2022-11-19 09:13] LABS: ALANINE AMINOTRANSFERASE 9 U/L (12-78); ALBUMIN 2.2 g/dL (3.4-4.8); ANION GAP 11 (5-15); ASPARTATE AMINOTRANSFERASE 15 U/L (10-37); CALCIUM 7.8 mg/dL (8.4-11.0); CHLORIDE 102 mmol/L (98-107); CREATININE 4.47 mg/dL (0.55-1.30); GLUCOSE 113 mg/dL (70-99); PHOSPHORUS 5.5 mg/dL (2.7-4.5); TOTAL BILIRUBIN 0.3 mg/dL (0.0-1.0); UREA NITROGEN, BLOOD 37 mg/dL (8-21)
[2022-11-19 12:00] VITALS: BP_SYST 129
[2022-11-19] MEDS: PIPERACILLIN/TAZO 2.25G/DEX-IS 50 ML IV SCH ×2 (12:26→18:55)
[2022-11-19 16:00] VITALS: BP_SYST 141
[2022-11-19 20:12] VITALS: BP_SYST 132
[2022-11-19 20:13] VITALS: BP_SYST 132
[2022-11-20] VITALS: BP_SYST 131
[2022-11-20] MEDS: PIPERACILLIN/TAZO 2.25G/DEX-IS 50 ML IV SCH ×4 (00:06→18:01)
[2022-11-20 08:00] VITALS: BP_SYST 173
[2022-11-20] MEDS: ATORVASTATIN 20 MG TABLET PO SCH (09:33)
[2022-11-20] MEDS: CLOPIDOGREL BISULFATE 75 MG TABLET PO SCH (09:34)
[2022-11-20] MEDS: ENOXAPARIN SODIUM 30 MG/0.3 ML SYRINGE SUBCUT SCH (09:34)
[2022-11-20] MEDS: ASPIRIN 81 MG TAB.CHEW PO SCH (09:34)
[2022-11-20] MEDS: FOLIC ACID 1 MG TABLET PO SCH (09:34)
[2022-11-20 12:00] VITALS: BP_SYST 151
[2022-11-20] MEDS: FUROSEMIDE 40 MG/4 ML VIAL IVP SCH (12:22)
[2022-11-20] MEDS: hydrALAZINE HCL 25 MG TABLET PO SCH ×2 (12:23→22:06)
[2022-11-20] MEDS: amLODIPine BESYLATE 10 MG TABLET PO SCH (12:24)
[2022-11-20] MEDS: METOPROLOL SUCCINATE 50 MG TAB.SR.24H (TOPROL XL) PO SCH (12:25)
[2022-11-20 16:00] VITALS: BP_SYST 127
[2022-11-20 20:00] VITALS: BP_SYST 138
[2022-11-21] VITALS: BP_SYST 132
[2022-11-21] MEDS: PIPERACILLIN/TAZO 2.25G/DEX-IS 50 ML IV SCH ×3 (00:31→11:33)
[2022-11-21 07:22] VITALS: BP_SYST 150
[2022-11-21] MEDS: FUROSEMIDE 40 MG/4 ML VIAL IVP SCH (08:39)
[2022-11-21] MEDS: amLODIPine BESYLATE 10 MG TABLET PO SCH (08:41)
[2022-11-21] MEDS: ATORVASTATIN 20 MG TABLET PO SCH (08:41)
[2022-11-21] MEDS: CLOPIDOGREL BISULFATE 75 MG TABLET PO SCH (08:41)
[2022-11-21] MEDS: FOLIC ACID 1 MG TABLET PO SCH (08:42)
[2022-11-21] MEDS: ASPIRIN 81 MG TAB.CHEW PO SCH (08:42)
[2022-11-21] MEDS: METOPROLOL SUCCINATE 50 MG TAB.SR.24H (TOPROL XL) PO SCH (08:42)
[2022-11-21] MEDS: hydrALAZINE HCL 25 MG TABLET PO SCH ×2 (08:42→20:41)
[2022-11-21] MEDS: ENOXAPARIN SODIUM 30 MG/0.3 ML SYRINGE SUBCUT SCH (08:42)
[2022-11-21 11:07] VITALS: BP_SYST 141
[2022-11-21] MEDS ORDERED: ERYT-122 PO (12:10)
[2022-11-21] MEDS ORDERED: ERYTHROMYCIN BASE 500 MG TABLET PO ONE (12:30)
[2022-11-21 17:17] VITALS: BP_SYST 130
[2022-11-21 20:00] VITALS: BP_SYST 148
[2022-11-21] MEDS: ERYTHROMYCIN BASE 500 MG TABLET PO SCH (20:41)
[2022-11-22 01:07] VITALS: BP_SYST 152
[2022-11-22 08:00] VITALS: BP_SYST 127
[2022-11-22] MEDS: FUROSEMIDE 40 MG/4 ML VIAL IVP SCH (09:00)
[2022-11-22] MEDS: ERYTHROMYCIN BASE 500 MG TABLET PO SCH (09:30)
[2022-11-22] MEDS: ASPIRIN 81 MG TAB.CHEW PO SCH (09:31)
[2022-11-22] MEDS: FOLIC ACID 1 MG TABLET PO SCH (09:31)
[2022-11-22] MEDS: ATORVASTATIN 20 MG TABLET PO SCH (09:31)
[2022-11-22] MEDS: CLOPIDOGREL BISULFATE 75 MG TABLET PO SCH (09:31)
[2022-11-22] MEDS: METOPROLOL SUCCINATE 50 MG TAB.SR.24H (TOPROL XL) PO SCH (09:32)
[2022-11-22] MEDS: amLODIPine BESYLATE 10 MG TABLET PO SCH (09:33)
[2022-11-22] MEDS: hydrALAZINE HCL 25 MG TABLET PO SCH (09:33)
[2022-11-22] MEDS: ENOXAPARIN SODIUM 30 MG/0.3 ML SYRINGE SUBCUT SCH (09:34)
[2022-11-22 11:35] VITALS: BP_SYST 153
[2022-11-22 13:25] VITALS: BP_SYST 128
== END 2022-11-22 15:15 | disposition home or self-care (01) | DRG 673 ==
LOC: SED 09:10 → STU 11:46 → SMU 11-17 14:29
PROC: 0W9B3ZZ Drainage of Left Pleural Cavity, Percutaneous Approach (ICD-10-PCS; 2022-11-15)
PROC: 02HV33Z Insertion of Infusion Device into Superior Vena Cava, Percutaneous Approach (ICD-10-PCS; 2022-11-16)
PROC: B5181ZA Fluoroscopy of Superior Vena Cava using Low Osmolar Contrast, Guidance (ICD-10-PCS; 2022-11-16)
PROC: B548ZZA Ultrasonography of Superior Vena Cava, Guidance (ICD-10-PCS; 2022-11-16)
PROC: 5A1D70Z Performance of Urinary Filtration, Intermittent, Less than 6 Hours Per Day (ICD-10-PCS; 2022-11-16)
PROC: 0JHD0XZ Insertion of Tunneled Vascular Access Device into Right Upper Arm Subcutaneous Tissue and Fascia, Open Approach (ICD-10-PCS; principal; 2022-11-16 13:55)
PROC: 5A1D70Z Performance of Urinary Filtration, Intermittent, Less than 6 Hours Per Day (ICD-10-PCS; 2022-11-17)
PROC: 5A1D70Z Performance of Urinary Filtration, Intermittent, Less than 6 Hours Per Day (ICD-10-PCS; 2022-11-20)
PROC: 5A1D70Z Performance of Urinary Filtration, Intermittent, Less than 6 Hours Per Day (ICD-10-PCS; 2022-11-22)
DX: N17.0 Acute kidney failure with tubular necrosis (principal); I50.43 Acute on chronic combined systolic (congestive) and diastolic (congestive) heart failure; J96.01 Acute respiratory failure with hypoxia; I13.2 Hypertensive heart and chronic kidney disease with heart failure and with stage 5 chronic kidney disease, or end stage renal disease; E44.0 Moderate protein-calorie malnutrition; J90 Pleural effusion, not elsewhere classified; N18.6 End stage renal disease; N04.9 Nephrotic syndrome with unspecified morphologic changes; D63.8 Anemia in other chronic diseases classified elsewhere; I25.10 Atherosclerotic heart disease of native coronary artery without angina pectoris; E78.00 Pure hypercholesterolemia, unspecified; E87.5 Hyperkalemia; J45.909 Unspecified asthma, uncomplicated; E11.22 Type 2 diabetes mellitus with diabetic chronic kidney disease; Z20.822 Contact with and (suspected) exposure to COVID-19; Z79.82 Long term (current) use of aspirin; Z79.899 Other long term (current) drug therapy; Z79.02 Long term (current) use of antithrombotics/antiplatelets; Z87.891 Personal history of nicotine dependence; Z95.5 Presence of coronary angioplasty implant and graft; Z68.31 Body mass index [BMI] 31.0-31.9, adult
CPT/HCPCS: 32555; 36415; 71045; 76000; 76770; 80053; 80061; 81000; 82575; 82728; 82947; 83037; 83540; 83550; 83690; 83735; 83880; 84100; 84156; 84157; 84439; 84443; 84484; 85025; 85610-TC; 85730-TC; 86480; 86706; 86803; 87070-TC; 87081; 87116; 87340; 88108; 89051-TC; 89060-TC; 90935; 90937; 93005; 93306; 94760; 96374; 99291; C1750; G0378; J0690; J1644; J1650; J1815; J1940; J2543; J3490; J7060